=== PATIENT | female | born 1970 | race Caucasian/White ===

== ENCOUNTER 2025-04-10 08:33 | Outpatient (CLI) | payer OTHER, SELFPAY | END 2025-04-10 08:34 | disposition home or self-care (01) | PROVIDERS: Visit Provider Family Medicine | DX: E11.649 Type 2 diabetes mellitus with hypoglycemia without coma (principal); R41.82 Altered mental status, unspecified; T14.90XA Injury, unspecified, initial encounter; V48.0XXA Car driver injured in noncollision transport accident in nontraffic accident, initial encounter; Y92.411 Interstate highway as the place of occurrence of the external cause | CPT/HCPCS: A0425; A0427 ==

== ENCOUNTER 2025-04-10 09:01 | Observation (INO) | payer OTHER, SELFPAY ==
[2025-04-10] VITALS (19 sets, daily range): BP systolic 107–150; BP diastolic 55–104; PULSE 77–95; RESP 18–22; TEMP 35.5–36.9; O2SAT 95–100; BMI 28.2
[2025-04-10] MEDS: DEXTROSE 50 % SYRINGE IVP (09:15)
[2025-04-10] MEDS: 10 % DEXTROSE 500 ML 250 ML 1000 ML IV ×2 (09:20→10:10)
[2025-04-10] MEDS: LORazepam 0.5 MG TABLET PO ×2 (09:48→23:22)
[2025-04-10 09:49] LABS: Basophils Absolute Auto 0.01 K/uL (0.00-0.30); Basophils Percent Auto 0.1 % (0.0-3.0); Eosinophils Absolute Auto 0.16 K/uL (0.00-0.50); Eosinophils Percent Auto 1.7 % (0.0-7.0); Hematocrit 35.3 % (33.0-51.0); Hemoglobin* 11.7 gm/dL (12.0-16.0); Immature Granulocytes Abs Auto 0.02 K/uL (0.00-0.30); Immature Granulocytes Pct Auto 0.2 %; Lymphocytes Absolute Auto 2.69 K/uL (0.90-2.90); Lymphocytes Percent Auto 27.8 % (20-44); Mean Corpuscular HGB Conc 33 gm/dL (32-36); Mean Corpuscular Hemoglobin 32 pg (26-34); Mean Corpuscular Volume 95 fL (80-100); Monocytes Percent Auto 7.1 % (0.0-11.0); Neutrophils Absolute Auto 6.11 K/uL (1.7-7.0); Neutrophils Percent Auto 63.1 % (42.0-72.0); Platelet Count* 347 K/uL (140-440); RDW Coefficient of Variation % 12.4 % (11.5-15.5); Red Blood Count 3.72 m/uL (4.00-5.20); White Blood Count* 9.68 K/uL (4.50-11.00)
[2025-04-10 09:58] LABS: Slide Review Reflex No
[2025-04-10 10:02] LABS: Albumin* 4.3 g/dL (3.3-5.0); Chloride* 107 mmol/L (96-114); Sodium* 141 mmol/L (135-149)
[2025-04-10 10:03] LABS: Potassium* 3.3 mmol/L (3.6-5.1)
[2025-04-10 10:05] LABS: Blood Urea Nitrogen* 30 mg/dL (7-30); Est. Creatinine Clearance* 61.81; Estimated Glomerular Filt Rate 67 ml/min
[2025-04-10 10:06] LABS: Alanine Aminotransferase* 19 U/L (4-35); Alkaline Phosphatase* 60 U/L (40-150); Anion Gap 8 mEq/L (7-15); Aspartate Amino Transferase* 26 U/L (12-35); Bilirubin Direct* 0.3 mg/dL (0.0-0.5); Bilirubin Total* 0.5 mg/dL (0.1-1.5); Calcium* 9.8 mg/dL (8.4-10.6); Carbon Dioxide* 26 mmol/L (20-32); Glucose* 183 mg/dL (60-115); Magnesium* 2.4 mg/dL (1.5-2.6); Total Protein* 6.9 g/dL (6.0-8.3)
--- OUTSIDE RECORDS SUMMARY | 2025-04-10 10:14 | XMS_ITS | Clinical Summary ---
Author Organization [employer] [facility] Address [facility] [place] [address] Care Team Providers Care Mold Clamper Name Role Phone Raine Mckinnon Primary Care Provider [phone] Allergies Active Allergy Reactions Criticality Noted Date Comments Penicillins Rash 08/13/2010 Propoxyphene Rash 08/13/2010 Sulfa (Sulfonamide Antibiotics) Rash 08/04 Medications lisinopriL (PRINIVIL; ZESTRIL) 5 mg tablet Take 5 mg by mouth once daily. Active atorvastatin (LIPITOR) 10 mg tablet Take 10 mg by mouth at bedtime. 05/16/20 20 Active fexofenadine (GAUDENCIO) 180 mg tablet Take 180 mg by mouth once daily. 05/16/20 20 Active FLUoxetine (PROZAC) 20 mg capsule Take 40 mg by mouth once daily. 05/16/20 20 Active hydrOXYzine HCL (ATARAX) 25 mg tablet Take 25 mg by mouth 2 times daily if needed for Anxiety. 05/16/20 20 Active valACYclovir (VALTREX) 1 gram tablet Take 1,000 mg by mouth 2 times daily. 05/16/20 20 Active ibuprofen (ADVIL; MOTRIN) 600 mg tabletIndications: S/P abdominal hysterectomy Take 1 tablet by mouth every 6 hours. Maximum of 3200 mg in 24 hours. 30 tablet 11/25/2020 10:02 AM [facility] 11/25/19 21 Active oxyCODONE (ROXICODONE) 5 mg immediate release tabletIndications: S/P abdominal hysterectomy Take 1 to 2 tablets by mouth every 4 hours if needed for moderate to severe pain not controlled with ibuprofen and acetaminophen. 20 tablet 11/25/2020 10:02 AM [facility] 11/25/19 21 Active polyethylene glycoL (MIRALAX) 17 gram/dose powderIndications: S/P abdominal hysterectomy Mix & dissolve 17 grams of powder in 4 to 8 ounces of liquid and drink by mouth or nasogastric tube once daily. 510 g 11/25/2020 10:02 AM [facility] 11/25/19 21 Active ondansetron (ZOFRAN ODT) 4 mg disintegrating tabletIndications: Ileus, postoperative (HC) Place 1 tablet on the tongue every 8 hours if needed for Nausea/Vomiting for up to 20 doses. 20 tablet 11/27/19 21 Active Active Problems Problem Noted Date Diagnosed Date Anxiety state, unspecified 08/16/2010 DKA (diabetic ketoacidoses) 08/13/2010 Abdominal pain, generalized 08/13/2010 Nausea with vomiting 08/13/2010 Dehydration 08/13/2010 Hyponatremia 08/13/2010 Ketonuria 08/13/2010 Leukocytosis 08/13/2010 Immunizations Immunization Administration Dates Next Due Influenza, IIV3 (Age >=3 years) 08/18/2010 Pneumococcal Poly,23-Valent (Pneumovax) 08/18/20 10 Social History Tobacco Use Types Packs/Day Years Used Date Smoking Tobacco: Former Smokeless Tobacco: Never Alcohol Use Standard Drinks/Week Comments Yes 2.5 (1 standard drink = 0.6 oz p ure alcohol) Comments No Sex and Gender Information Value Date Recorded Sex Assigned at Not on file Legal Sex Female 6:59 AM [facility] Gender Identity Not on file Sexual Orientation Not on file Obstetrics History Last Filed Vital Signs Vital Sign Reading Time Taken Comments Blood Pressure 107/59 11/27/2020 10:41 AM [facility] Pulse 95 11/27/2020 11:06 AM [facility] Temperature 37 C (98.6 F) 11/27/2020 7:55 AM [facility] Respiratory Rate 18 11/27/2020 7:55 AM [facility] Oxygen Saturation 99% 11/27/2020 11:06 AM [facility] Inhaled Oxygen Concentration - - Weight 83 kg (183 lb) 11/27/2020 7:55 AM [facility] Height 170.2 cm (5' 7) 11/27/2020 7:55 AM [facility] Body Mass Index 28.66 11/27/2020 7:55 AM [facility] Plan of Treatment Not on file Advance Directives * Full Code (Latest Code Status on File) Date Activated Date Inactivated Comments 11/23/2020 9:41 AM 11/25/2020 1:21 PM Question Answer Comments Code Status Discussion: Discussed * Full Code Date Activated Date Inactivated Comments 08/13/2010 11:58 AM 08/18/2010 7:58 PM Care Teams Mold Clamper Relationship Specialty Start Date End Date Raine Mckinnon PA [address] [id number] PCP - General Physician Cad Design Engineer 09/28/20
[2025-04-10 10:28] LABS: C Reactive Protein* < 0.5 mg/dL (0.5-1.0); Troponin I* < 0.01 ng/mL (0.01-0.04)
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
[2025-04-10] MEDS: ONDANSETRON 2 MG/ML inj 4 MG IVP (10:52)
[2025-04-10] MEDS: 10 % DEXTROSE 500 ML 500 ML 1000 ML IV (10:53)
[2025-04-10 11:49] LABS: Appearance Urine Clear (Clear); Bilirubin Urine Negative (Negative); Blood Urine Negative (Negative); Color Urine Yellow (Yellow); Glucose Urine 1+ (Negative); Ketones Urine Negative (Negative); Leukocyte Esterase Urine 2+ (Negative); Nitrite Urine Positive (Negative); Protein Urine Negative (Negative); Urobilinogen Urine 0.2 (0.2-1.0); pH Urine 5.5 (5.0-8.5)
[2025-04-10 11:53] LABS: Ur HCG Qualitative* Negative (Negative)
[2025-04-10 12:04] LABS: Bacteria Urine Many; RBC Urine 0-2 (0-2); Squamous Epithelial Cell Urine Few (None-Few)
[2025-04-10 12:33] LABS: PCR FLU A Negative PCR FLU A (Negative); PCR FLU B Negative PCR FLU B (Negative); SARS PCR* Negative SARS-CoV-2 (Negative)
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
[2025-04-10] MEDS: INSULIN ASPART 100 UNIT/ML SUBCUT ×2 (14:28→18:21)
[2025-04-10 14:47] LABS: Hemoglobin A1C* 8.7 % (0-5.6)
[2025-04-10] MEDS: POTASSIUM BICARB 25 MEQ EFFERVESCENT TAB PO (15:38)
[2025-04-10] MEDS: INSULIN ASPART 100 UNIT/ML 7 UNIT SUBCUT (18:20)
--- NOTE | 2025-04-10 18:45 | PC.NURSE ---
End of Shift: Patient pleasant and cooperative, A&O. VSS, afebrile. SpO2 maintained above 90% on RA. Patient denies pain this shift, denies nausea. Tolerating diabetic diet, sliding scale insulin given per protocol this shift. Blood sugars have been stable since admission. SBA.
[2025-04-10] MEDS: hydrOXYzine pamoate 25 MG CAPSULE PO (21:13)
[2025-04-10] MEDS: ATORVASTATIN CALCIUM 10 MG TABLET PO (21:13)
[2025-04-10] MEDS: SODIUM CHLORIDE 0.9 % (FLUSH) 10 ML SYRINGE 5 ML IVF (21:13)
[2025-04-11 02:07] VITALS: BP 126/70; PULSE 77; RESP 16; TEMP 36.7; O2SAT 99
--- NOTE | 2025-04-11 06:19 | PC.NURSE ---
[id number]: Patient pleasant and cooperative with cares. BG ranging 139-177 with patient refusing insulin. Patient with increased anxiety my mind won't shut off. Ativan x1 administered and effective. Patient reports resting well during noc. Denies pain. Denies CP/N/V.
[2025-04-11 06:35] LABS: Chloride* 105 mmol/L (96-114)
[2025-04-11 06:36] LABS: Potassium* 4.7 mmol/L (3.6-5.1); Sodium* 140 mmol/L (135-149)
[2025-04-11 06:39] LABS: Anion Gap 6 mEq/L (7-15); Blood Urea Nitrogen* 21 mg/dL (7-30); Calcium* 9.5 mg/dL (8.4-10.6); Carbon Dioxide* 29 mmol/L (20-32); Creatinine* 1.1 mg/dL (0.5-1.5); Est. Creatinine Clearance* 56.19; Estimated Glomerular Filt Rate 59 ml/min; Glucose* 152 mg/dL (60-115)
[2025-04-11 07:00] VITALS: BP 107/71; PULSE 86; RESP 16; TEMP 36.9; O2SAT 96
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
[2025-04-11 08:21] LABS: Amphetamine Screen Urine Negative (Negative); Barbiturate Screen Urine Negative (Negative); Benzodiazepines Screen Urine Negative (Negative); Cannabinoid Screen Urine Negative (Negative); Cocaine Screen Urine Negative (Negative); Methadone Screen Urine Negative (Negative); Methamphetamines Screen Urine Negative (Negative); Opiate Screen Urine Negative (Negative); Oxycodone Screen Urine Negative (Negative); Phencyclidine Screen Urine Negative (Negative); Tricyclic Antidepressant Urine Negative (Negative)
[2025-04-11 08:31] LABS: Ethanol* < 0.01 % (0.01-0.03)
[2025-04-11] MEDS: INSULIN ASPART 100 UNIT/ML 7 UNIT SUBCUT (09:01)
[2025-04-11] MEDS: INSULIN ASPART 100 UNIT/ML SUBCUT (09:01)
[2025-04-11] MEDS: buPROPion XL 150 MG TABLET PO (09:30)
[2025-04-11] MEDS: FEXOFENADINE 180 MG TABLET PO (09:31)
[2025-04-11] MEDS: FLUOXETINE HCL 20 MG CAPSULE 40 MG PO (09:31)
[2025-04-11] MEDS: INSULIN GLARGINE,HUM.REC.ANLOG 100 UNIT/ML INSULN.PEN 25 UNIT SUBCUT (09:32)
[2025-04-11 11:00] VITALS: BP 117/80; PULSE 84; RESP 16; TEMP 36.7; O2SAT 98
--- NOTE | 2025-04-11 15:37 | PC.NURSE ---
Discharge: patient discharged to home accompanied by family at 1405. Patient's VSS. on RA and tolerating a reg diabetic diet but reports she does not have much of an appetite, Patients IV removed intact. BG checked prior to meals, see emar. Discharge instructions given and signed patient verbalized understanding.
== END 2025-04-11 14:05 | disposition home or self-care (01) ==
LOC: ED 10:57 → MEDSURG 12:04
PROVIDERS: Admitting Provider Family Medicine; Emergency Provider Family Medicine; Visit Provider Family Medicine
DX: E16.2 Hypoglycemia, unspecified (principal); E11.641 Type 2 diabetes mellitus with hypoglycemia with coma; Z79.4 Long term (current) use of insulin; R53.83 Other fatigue; E78.5 Hyperlipidemia, unspecified; F41.9 Anxiety disorder, unspecified; G47.00 Insomnia, unspecified; F32.A Depression, unspecified
CPT/HCPCS: 36415; 80048; 80076; 80306; 81001; 81025; 82077; 82962; 83036; 83605; 83735; 84443; 84484; 85025; 86140; 87086; 87631; 96365; 96375; 96376; 99284; 99285; 99291; A9270; G0378; J1815; J2405